=== PATIENT | female | born 2005 | race Asian ===

== ENCOUNTER 2025-01-26 06:40 | Outpatient (REF) | payer OTHER, SELFPAY ==
--- NOTE | ~2025-01-26 | US_ITS ---
EXAMINATION: US PELVIS, COMPLETE CLINICAL INFORMATION: CHECK IUD PLACEMENT COMPARISON: None TECHNIQUE: Transabdominal and transvaginal imaging was performed. FINDINGS: LMP: IUD present Uterus is retroverted and retroflexed , measuring 6.3 x 4.3 x 4.9 cm. No focal uterine lesion. The IUD appears appropriately positioned in the endometrial canal. Right ovary measures 2.3 x 1.5 x 2.2 cm. Volume 5.7 mL. Left ovary measures 3.2 x 2.3 x 1.7 cm. Volume 6.7 mL. Bilateral ovaries appear unremarkable No free fluid in the cul-de-sac. US/US pelvic and transvaginal IMPRESSION: IUD appears appropriately positioned in the endometrial canal. Electronically signed by: Raphael Guzman MD 01/27/2025 03:11 PM JANET
--- OUTSIDE RECORDS SUMMARY | 2025-01-26 06:43 | XMS_ITS | Clinical Summary ---
Author Organization [facility] Address [address] [place] [address] [place] [phone] Phone Care Team Providers Care Curtain Inspector Name Role Phone Pcp, Unknown Primary Care Provider Unavailabl e Allergies No known active allergies Medications No known medications Active Problems Problem Noted Date Diagnosed Date Mental health problem 05/18/2022 Encounters Date Type Department Care Team Description 12/28/2024 Transcribe Orders [address] [address] Ana Garcia, Unspecified lump in the right breast, upper inner quadrant (Primary Dx) from Last 3 Months Social History Tobacco Use Types Packs/Day Years Used Date Smoking Tobacco: Never Smokeless Tobacco: Never Tobacco Cessation:Counseling Given: Not Answered Alcohol Use Standard Drinks/Week Comments Not Currently 0 (1 standard drink = 0.6 oz pur e alcohol) Education Answer Date Recorded Are you interested in more education? Not on awilda e 07/20/2022 Are you concerned about learning? Not on file 07/20/2022 No 07/20/2022 No 07/20/2022 Digital Access Answer Date Recorded No 08/03/2022 No 08/03/2022 No 08/03/2022 Reliable internet access at home? Not on file 08/03/2022 Device with a working camera? Not on file Intimate Partner Violence Answer Date R ecorded Are you denied basic needs s uch as food, clothing, or medical care? No 05/17/2022 In the past 12 months have y ou been in a relationship with a person who hurts, threatens, or tries to control you? No 05/17/2022 Are you denied basic needs s uch as food, clothing, or medical care? No 05/17/2022 In the past 12 months have y ou been in a relationship with a person who hurts, threatens, or tries to control you? No 05/17/2022 Comments Unknown Sex and Gender Information Value Date Recorded Sex Assigned at Female 05/17/2022 10:16 PM EST Legal Sex Female 6:18 PM EST Gender Identity Non-binary 05/17/2022 10:16 PM EST Sexual Orientation Not on file Last Filed Vital Signs Vital Sign Reading Time Taken Comments Blood Pressure 108/69 05/20/2022 8:50 AM EDT Pulse 89 05/20/2022 8:50 AM EDT Temperature 36.6 C (97.9 F) 05/20/2022 8:50 AM EDT Respiratory Rate 20 05/20/2022 8:50 AM EDT Oxygen Saturation 99% 05/20/2022 8:50 AM EDT Inhaled Oxygen Concentration - - Weight 45.4 kg (100 lb) 05/17/2022 10:08 PM EST Height 152.4 cm (5') 05/17/2022 10:08 PM EST Body Mass Index 19.53 05/17/2022 10:08 PM EST Plan of Treatment Health Maintenance Due Date Last Done Comments Adult Td,Tdap Booster 2003 MMR VACCINES (1 of 1 - Stand kaylah series) 10/13/2004 COMBINED DTaP,Tdap,Td (1 - Tdap) 10/13/2010 DEPRESSION SCREENING 2015 SMOKING Hx and SMOKELESS TOB ACCO SCREENING 10/13/2016 HPV VACCINES (1 - 3-dose series) 10/13/2018 CHLAMYDIA SCREENING 2019 MENINGOCOCCAL VACCINES (B) ( 1 of 2 - Standard) 2019 ADOLESCENT UNIVERSAL LIPID SCREENING 10/13/2020 HEPATITIS C SCREENING 10/13/2021 HIV ONE-TIME SCREENING (18-6 5 YEARS) 10/13/2021 INFLUENZA VACCINE (#1) 2024 PAP SMEAR 10/13/2024 COVID-19 VACCINE ( - 2024-2 6 season) 2024 HEPATITIS A VACCINES Aged Out No long er eligible based on patient's age to complete this topic HIB VACCINES Aged Out No longer eligi ble based on patient's age to complete this topic IPV VACCINES Aged Out No longer eligi ble based on patient's age to complete this topic MENINGOCOCCAL VACCINES (ACWY) Aged Out No longer eligible based on patient's age to complete this topic PNEUMOCOCCAL VACCINES (0-49 years) Aged Out No longer eligible based on patient's age to complete this topic Medical Devices Not on file Insurance [employer] FAMILY [employer] FAM[employer] FAMILY [employer] FAMILY [employer] FAMILY Care Teams Curtain Inspector Relationship Specialty Start Date End Date Pcp, Unknown PCP - General 05/17/22 Additional Source Comments The information contained in this document represents components of the legal health record. It is not the complete legal health record.[facility]
--- OUTSIDE RECORDS SUMMARY | 2025-01-26 06:43 | XMS_ITS | Clinical Summary ---
[facility] Organization [facility] Address [address] [place] [address] [place] [id number] Care Team Providers Care Steeler Name Role Phone Poc, Not Assigned Pcp Or Unavailable Unavail able Leah Nathan Md Primary Care Provider [phone] Allergies Active Allergy Reactions Criticality Noted Date Comments Adhesive Tape-Silicons 02/24/2013 bandaids -> red rash Medications * This document contains information received from the source organization and may not represent a complete record from that organization. clindamycin 1 % GelIndications: Acne vulgaris Apply to the affected area twice daily ; sparingly after washing 30 gram 2 Active Active Problems Problem Noted Date Diagnosed Date Mild depression 03/20/2022 Overview (04/02/2023): 05/2022 - ED admission for SI, admitted [facility], trial of Lexapro for anxiety 03/2023 - Moderate depression, denies SI/HI, ref to Inattention 03/20/2022 Overview (04/02/2023): 03/2023 - Followed by psychiatrist up until 6 mos ago, trial of non-stimulant for ADHD x 2 weeks, stopped due to s/e (mood), ref to COVID-19 04/08/2021 Overview (04/08/2021): Collected: 04/07/21 1136 Final result Specimen: Swab CORONAVIRUS RESULTS Detected Abnormal Acne vulgaris 10/24/2020 Overview (10/24/2020): October 24, 2020: Acne. Discussed [facility]MA acne H.O. Rx'd Cleocin gel QHS. Myopia of both eyes 02/17/2014 Wears glasses 06/27/2012 Overview (10/18/2012): 10/18/12: No glasses yet. Encounters Date Type Department Care Team Description 11/16/2024 Letter (Out) [facility] Dept Campaign, Provider 11/02/2024 [facility] Schedule your annual visit 10/26/2024 Email Encounter [facility] Dept Campaign, Provider Contact Us to Schedule Any Needed Care from Last 3 Months Immunizations Immunization Administration Dates Next Due COVID-19 (PFIZER) Vaccine, 30mcg/0.3mL, 12YRS+, Diluent Reconstituted, IM 09/20/2020,08/30/2020 DTaP Vaccine 2007, 5,04/23/2004,02/06,2003 HFlu B Conj (PRP-T) 01/24/2005, 5,02/19/2004,06/2003 HPV9 Vaccine (Gardasil9) 08/20/2018,02/19/2018 Hep A Vaccine Pedi/Adol-2 Dose Sched 10/24/2013, 02/24/2013 08/25/2013 Hep B Vaccine (Unspecified Formulation) 08/11/2006,06/24/2005,05/22/2005,04/09,2003,2003 Influenza Vaccine (Unspecifi ed Formulation) 03/26/2006,02/17/2006 Influenza Vaccine, 6MOS+, Ce ll Cult, Single Dose Syringe, 0.5 mL (FLUCELVAX) 04/02/2023 Influenza Vaccine, 6MOS+, Si ngle Dose, 0.5 mL (Flulaval/Fluzone) 03/19/2022,12/09/2020,11/30/2019,02/06,02/19/2018 Influenza Vaccine, Intranasal 12/10/2012, 012,02/14/2011 Influenza Vaccine, Quadrival ent Split Virus Preserv Free >/= 36 Mos 02/17/2014 MMR Vaccine 2007,01/24/2005 Meningococcal ACWY (Menactra ) Conjugate Vaccine 10/24/2019,10/16/2014 Meningococcal Group B (Bexse ro) Conjugate Vaccine 11/30/2019,10/24/2019 Pneumococ/Pedi-Conjugate (PCV7) 10/23/19 05,04/23/2004,02/19/2004,06/2003 Polio Vaccine (Inactivated) 2007,0 04/24/2005,02/19/2004,12/07 TdaP 10/16/2014 Typhoid Vaccine IM (ViCPS) 02/24/2013 Varicella Vaccine 2007,10/22/2004 Social History Tobacco Use Types Packs/Day Years Used Date Smoking Tobacco: Never Smokeless Tobacco: Never Alcohol Use Standard Drinks/Week Comments Never 0 (1 standard drink = 0.6 oz pur e alcohol) AUDIT-C Answer Date Recorded Q1: How often do you have a drink containing alc ohol? Never 10/24/2019 Average Number of Drinks Not on file 020 Frequency of Binge Drinking Not on file 10/07 Hunger Vital Sign Answer Date Recorded Within the past 12 months, y ou worried that your food would run out before you got the money to buy more. Never true 04/02/19 24 Within the past 12 months, t he food you bought just didn't last and you didn't have money to get more. Never true 04/02/2023 PRAPARE - Transportation Answer Date Re corded In the past 12 months, has l ack of transportation kept you from medical appointments or from getting medications? No 03/10 In the past 12 months, has l ack of transportation kept you from meetings, work, or from getting things needed for daily living? No 04/02/2023 Depression Answer Date Recorded Last PHQ-2 3 04/02/2023 Last PHQ-9 Not on file 04/02/2023 Suicidal Ideation/Self Harm Risk Not on file 04/02/2023 Housing Stability Answer Date Recorded What is your housing situation today? Has wilenr g 04/02/2023 Are you worried about losing your housing? No 04/02/[address] you li ve. Do you have problem with any of the following? (Choose all that apply) None of the Above Request Assistance Answer Date Recorded Would you like to discuss an y of the needs you identified in this survey with a member of your care team? No 2023 Urgent Assistance Needed Not on file 024 Social Isolation Answer Date Recorded How often do you feel lonely or isolated from th ose around you? Often 04/02/2023 Family Needs Answer Date Recorded In the past year, have you o r any family members that you live with been unable to get resources (utilities such as power, water, or phone service; clothing; childcare; medicine or other healthcare; employment; etc) when they were really needed? No needs 04/02/2023 Other Needs Not on file 04/02/2023 Safety Answer Date Recorded Do you feel physically and e motionally safe where you currently live? No 04/02/2023 Self-Management Confidence Answer Date Recorded How confident are you that y ou can control and manage most of your health problems? Please provide numerical response between 0 -10. 0 = Not at all confident, 10= Completely confident. 6 04/02/2023 Comments Unknown Sex and Gender Information Value Date Recorded Sex Assigned at Not on file Legal Sex Female 3:25 AM EDT Gender Identity Not on file Sexual Orientation Not on file Last Filed Vital Signs Vital Sign Reading Time Taken Comments Blood Pressure 116/70 04/02/2023 11:44 AM EST Pulse 88 04/02/2023 11:44 AM EST Temperature 36.7 C (98.1 F) 08/21/2021 1:42 PM EDT Respiratory Rate - - Oxygen Saturation 99% 03/19/2022 2:02 PM EST Inhaled Oxygen Concentration - - Weight 45.2 kg (99 lb 10.4 oz) 04/02/2023 11:44 AM EST Height 154.1 cm (5' 0.67 ) 04/02/2023 11:[address] Body Mass Index 19.03 04/02/2023 11:44 AM EST Plan of Treatment Health Maintenance Due Date Last Done Comments HEP B INITIAL SCREENING 10/13/2021 LIPID SCREENING 2023 CHLAMYDIA SCREENING FEMALE 16-24 04/02/2024 04/02/2023, 03/19/2022, 10/24/2020, Additional history exists PERIODIC HEALTH REVIEW 04/02/2024 04/02/2023 PAP: UPDATE W EDIT MODIFIERS 10/13/2024 DTAP/TDAP/TD VACCINE (7 - Td or Tdap) 10/16/2024 10/16/2014, 2007, 01/24/2005, Additional history exists COVID-19 Vaccine (3 - season) 2024 09/20/2020, 08/30/2020 FLU SEASONAL (#1) 11/07/2024 04/02/2023, 03/19/2022, 12/09/2020, Additional history exists HEP C SCREENING 04/02/2028 04/02/2023 PNEUMOCOCCAL VACCINE(S) Aged Out 10/23/19, 04/23/2004, 02/19/2004, Additional history exists No longer eligible based on patient's age to complete this topic HAEMOPHILUS INFLUENZA VACCINE Completed 01/24/2005, 04/23/2004, 02/19/2004, Additional history exists POLIO VACCINE Completed 2007, 04/09, 02/19/2004, Additional history exists RUBELLA Completed 2007, 01/24/2005 HEPATITIS A VACCINE Completed 10/24/2013, 3 HPV VACCINE Completed 08/20/2018, 02/19/2018 MENINGOCOCCAL VACCINE (ACWY) Completed 10/24/2019, 10/16/2014 MENINGOCOCCAL VACCINE (B) Completed 11/30/2019, HIV SCREENING Completed 04/02/2023 RSV Vaccine Infant//toddler Aged Out No longer eligible based on patient's age to complete this topic Procedures Procedure Name Priority Date/Time Associated Diagnosis Comments HEPATITIS C ANTIBODY W/REFLEX TO PCR Routine 04/02/2023 12:36 PM EST Encounter for routine adult health examination without abnormal findings HIV 1/2 ANTIGEN / ANTIBODY 4TH GENERATION W/REFLEX Routine 04/02/2023 12:36 PM EST Encounter for routine adult health examination without abnormal findings CHLAMYDIA URINE DNA Routine 04/02/2023 1 2:36 PM EST Encounter for routine adult health examination without abnormal findings from Last 3 Months or Most Recently Relevant to Health Maintenance Results * HEPATITIS C ANTIBODY W/REFLEX TO PCR (04/02/2023 12:36 PM EST) HEPATITIS C ANTIBODY 0.09 <0.80 Index Value (IV) 04/02/2023 7:[address] [facility] DEPARTMENT OF PATHOLOGY AND LAB MEDICINE Comment: NEGATIVE 0.00 - 0.79 Index Value (IV) Negative Test performed by the Siemens [employer]VIA RIB Software[employer] instrument using chemiluminescent immunoassay. Blood (Blood, Venous) Venipuncture / Unknown 04/02/2023 12:36 PM EST 04/02/2023 12:36 PM EST us [facility] Final Result Performing Organization Address [facility]/ZIP Co de Phone Number [facility] PATHOLOGY AND LAB MEDICINE [address] [place] [address] * CHLAMYDIA URINE DNA (04/02/2023 12:36 PM EST) Pathologist [facility] CHLAMYDIA PCR Negative Negative 04/03/2023 1:[address] [facility] DEPARTMENT OF PATHOLOGY AND LAB MEDICINE Comment: Test performed using Apt[employer] Combo2 PCR assay. SOURCE URINE 04/03/2023 1:38 PM EST [facility] OF PATHOLOGY AND LAB MEDICINE Urine (URINE) Urine / Unknown 04/02/2023 12:36 PM EST 04/02/2023 12:36 PM EST Ai [facility] LAB URINE ORDERABLES Final R esult Performing Organization Address City/[facility]/ZIP Co de Phone Number [facility] PATHOLOGY AND [facility] MEDICINE [address] [place] [address] from Last 3 Months or Most Recently Relevant to Health Maintenance Insurance [facility] Care Teams Steeler Relationship Specialty Start Date End Date Poc, Not Assigned Pcp Or PCP - Payer 08/09/18 Leah Nathan MD [address] [place] [address] PCP - General Pediatrics 09/30/21
== END 2025-01-26 06:41 | disposition home or self-care (01) ==
LOC: HO.UMASIMG 06:40
PROVIDERS: Visit Provider Family Medicine
DX: Z30.431 Encounter for routine checking of intrauterine contraceptive device (principal)
CPT/HCPCS: 76830; 76856

== ENCOUNTER → 2025-01-26 15:33 | Outpatient (BNV) | payer OTHER, SELFPAY | PROVIDERS: Visit Provider Radiology Diagnostic Ultrasound | DX: Z30.431 Encounter for routine checking of intrauterine contraceptive device (principal) | CPT/HCPCS: 76830; 76856 ==